=== PATIENT | female | born 1975 | race Caucasian/White ===

== ENCOUNTER 2021-04-15 10:44 | Outpatient (CLI) | payer OTHER | END 2021-04-15 11:03 | disposition home or self-care (01) | LOC: MAMO-SONO 10:44 | PROVIDERS: ATTEND Obstetrics & Gynecology | DX: N60.11 Diffuse cystic mastopathy of right breast (principal); N60.12 Diffuse cystic mastopathy of left breast ==

== ENCOUNTER 2022-02-03 07:30 | Day surgery (SDC) | payer OTHER | END 2022-02-03 17:30 | disposition home or self-care (01) | LOC: CIR.AMB 07:30 | PROVIDERS: ATTEND Colon & Rectal Surgery | DX: K64.8 Other hemorrhoids (principal); K60.2 Anal fissure, unspecified; K92.2 Gastrointestinal hemorrhage, unspecified; Z20.822 Contact with and (suspected) exposure to COVID-19 ==